=== PATIENT | male | born 1940 | race Caucasian/White ===

== ENCOUNTER 2020-08-21 13:10 | Outpatient (CLI) | payer MEDICARE, OTHER | END 2020-08-21 13:11 | disposition critical access hospital (66) | LOC: EMS 13:10 | DX: R73.9 Hyperglycemia, unspecified (principal); R20.0 Anesthesia of skin | CPT/HCPCS: A0425; A0429 ==

== ENCOUNTER 2020-08-21 14:10 | Inpatient (IN) | payer MEDICARE, OTHER ==
--- NOTE | 2020-08-21 14:29 | ED Physician Documentation ---
History of Present Illness - Stated complaint Stated Complaint: L LEG PX - Chief complaint Chief Complaint: General - Additonal information Additional information: 80-year-old male who has a history of diabetes hypertension and COPD comes to the emergency department via EMS for evaluation of hyperglycemia as well as 3 days right lower leg swelling and erythema. He reports to this provider that he ran out of insulin about 5 days ago and due to insurance and doctor availability was unable to get it refilled. He also began having swelling and redness of the right lower leg. He has reported subjective fevers but denies chest pain or sh ortness of air. No cough no vomiting abdominal pain dysuria urgency or frequency. He otherwise appears well. Her blood glucose for him right now is 318 mg/dl. Review of Systems Constitutional: reports: Fever Eyes: reports: Reviewed and negative Ears: reports: Reviewed and negative Nose: reports: Reviewed and negative Throat: reports: Reviewed and negative Cardiac: reports: Pedal edema, Calf pain (Right leg). denies: Chest pain / pressure, Palpitations Respiratory: reports: Dyspnea (baseline) GI: denies: Abdominal Pain, Nausea, Vomiting : denies: Dysuria, Frequency, Hesitancy Skin: reports: Other (Erythema and blistering right lower leg.) Neurologic: denies: Generalized weakness, Focal weakness, Numbness, Near syncope, Syncope, Confused, LOC PD PAST MEDICAL HISTORY - Past Medical History Cardiovascular: Hypertension, High cholesterol Endocrine/Autoimmune: Type 2 diabetes GI: GERD - Past Surgical History Past Surgical History: Yes General: Appendectomy - Present Medications Home Medications: Ambulatory Orders Medication Instructions Recorded Confirmed Cholecalciferol (Vitamin D3) 0 10/02/12 10/02/12 [Vitamin D] Flaxseed Oil [Flax Oil] 1,000 mg PO DAILY 10/02/12 10/02/12 Insulin Regular Human [NovoLIN R] 0 unit SUBQ ONCE 10/02/12 10/02/12 Multivitamin [Multivitamins] 1 each PO DAILY 10/02/12 10/02/12 [place]-3 Fatty Acids [Fish Oil] 0 mg PO DAILY 10/02/12 10/02/12 Simvastatin 20 mg PO DAILY 10/02/12 10/02/12 Tamsulosin [Flomax] 0.4 mg PO DAILY 10/02/12 10/02/12 allopurinoL [Allopurinol] 300 mg PO DAILY 10/02/12 10/02/12 lisinopriL [Lisinopril] 5 mg PO DAILY 10/02/12 10/02/12 Colesevelam HCl [Welchol] 625 mg PO DAILY PM 08/21/20 08/21/20 Finasteride [Proscar] 5 mg PO DAILY 08/21/20 08/21/20 Mecobal/Levomefolat Ca/B6 Phos 1 tab PO DAILY 08/21/20 08/21/20 [Foltanx Tablet] Methotrexate [Methotrexate Sodium] 2.5 mg PO DAILY PM 08/21/20 08/21/20 Thiamine [Vitamin B-1] 150 mg PO DAILY 08/21/20 08/21/20 metFORMIN [Glucophage] 500 mg PO DAILY PM 08/21/20 08/21/20 - Allergies Allergies/Adverse Reactions: Allergies Allergy/AdvReac Type Severity Reaction Status Date / Time No Known Drug Allergies Allergy Verified 08/21/20 14:21 - Social History Does the pt smoke?: No Smoking Status: Never smoker Does the pt drink ETOH?: No Does the pt have substance abuse?: No PD ED PE EXPANDED - General General: Alert, No acute distress, Other (Morbidly obese) - Neck Neck: Supple w/out meningeal sx. No: No tenderness - Cardiac Cardiac: Regular Rate, Radial strong equal, Pedal strong equal, Cap refill < 2 sec - Respiratory Respiratory: Clear to ausultation gurjit. No: Distress, Labored - Abdomen Abdomen: Normal Bowel sounds. No: Tender to palpation - Derm Derm: Warm and dry, Other (Extensive erythema and induration right lower foot and calf.) - Extremities Extremities: Right leg (Extensive swelling erythema and blistering right lower leg and calf extending to the knee.), Pedal edema R, Right calf TTP/cord, Pedal Pulses Present. No: Left calf TTP/cord, Decreased/absent pulse - Neuro Neuro: Alert and Oriented X 3, CNII-XII intact, Normal speech - GCS Eye Opening: Spontaneous Motor: Obeys Commands Verbal: Oriented Total: 15 Results - Vitals Vitals: Vital Signs - 24 hr 08/21/20 14:17 Temperature 36.5 C Heart Rate 93 Respiratory 20 Rate Blood Pressure 164/79 H O2 Saturation 93 Oxygen O2 Source Room air - Labs Labs: Laboratory Tests 08/21/20 08/21/20 08/21/20 14:52 14:52 14:52 WBC 20.5 H RBC 4.02 L Hgb 12.0 L Hct 35.6 L MCV 88.6 MCH 29.9 MCHC 33.7 RDW 13.6 Plt Count 197 MPV 9.1 Neut # (Auto) Not Reportable Lymph # (Auto) Not Reportable Butler # (Auto) Not Reportable Eos # (Auto) Not Reportable Baso # (Auto) Not Reportable Absolute Nucleated RBC Not Reportable Total Counted 100 Band Neuts % (Manual) 4 Abnorm Lymph % (Manual) 0 Nucleated RBC % Not Reportable Neutrophils # (Manual) 17.4 H Lymphocytes # (Manual) 1.0 L Monocytes # (Manual) 2.1 H Eosinophils # (Manual) 0.0 Basophils # (Manual) 0.0 Differential Comment MANUAL DIFFERENTIAL Manual Slide Review Indicated WBC Morphology 2+ TOXIC GRANULATION Platelet Estimate NORMAL (130-450,000) Platelet Morphology NORMAL APPEARANCE RBC Morph Micro Appear 1+ POLYCHROMASIA Sodium 130 L Potassium 4.0 Chloride 95 L Carbon Dioxide 22 Anion Gap 13.0 BUN 43 H Creatinine 1.6 H Estimated GFR (MDRD) 42 L Glucose 323 H Lactic Acid 1.7 Calcium 8.8 Total Bilirubin 0.5 AST 15 ALT 24 Alkaline Phosphatase 60 Total Protein 6.6 L Albumin 2.7 L Globulin 3.9 Albumin/Globulin Ratio 0.7 L Ethyl Alcohol Serum Ketones NEGATIVE 08/21/20 14:52 WBC RBC Hgb Hct MCV MCH MCHC RDW Plt Count MPV Neut # (Auto) Lymph # (Auto) Butler # (Auto) Eos # (Auto) Baso # (Auto) Absolute Nucleated RBC Total Counted Band Neuts % (Manual) Abnorm Lymph % (Manual) Nucleated RBC % Neutrophils # (Manual) Lymphocytes # (Manual) Monocytes # (Manual) Eosinophils # (Manual) Basophils # (Manual) Differential Comment Manual Slide Review WBC Morphology Platelet Estimate Platelet Morphology RBC Morph Micro Appear Sodium Potassium Chloride Carbon Dioxide Anion Gap BUN Creatinine Estimated GFR (MDRD) Glucose Lactic Acid Calcium Total Bilirubin AST ALT Alkaline Phosphatase Total Protein Albumin Globulin Albumin/Globulin Ratio Ethyl Alcohol < 5.0 Serum Ketones PD MEDICAL DECISION MAKING - ED course Complexity details: reviewed results, re-evaluated patient, d/w patient ED course: 80-year-old male presents the emergency department with elevated blood sugars as he ran out of insulin 2 days ago and has extensive cellulitis on the right lower leg. He is noted to have fevers at home but none here and an elevated white count of 20. Lactic acid is not elevated. However he does meet criteria for sepsis. vancomycin was ordered given extensive right leg cellulitis. blood cultures are pending. He will be brought into the hospital for further evaluation and treatment of his cellulitis and diabetes. Pt agreeable to plan - Sepsis Event Sepsis Onset Date: 08/21/20 Initial Hypotension: Not hypotensive Possible source of Sepsis: Skin/soft tissue Mental/Cognitive Status: Alert/Oriented X3 Reason for not giving 30ml/kg crystalloid fluids: Not in septic shock Capillary refill: Less than 2 seconds Peripheral Pulse Strength: 2+ Slightly Diminished Peripheral Pulse Location: Radial Bedside ultrasound performed: No Departure - Departure Disposition: 66 [facility] DC/Xfer Clinical Impression: Cellulitis Qualifiers: Site of cellulitis: extremity Site of cellulitis of extremity: lower extremity Laterality: right Qualified Code(s): L03.115 - Cellulitis of right lower limb Diabetes Qualifiers: Diabetes mellitus type: type 2 Diabetes mellitus intermediate insulin use: with intermediate use Diabetes mellitus complication status: with other specified complication Qualified Code(s): E11.69 - Type 2 diabetes mellitus with other specified complication Sepsis Qualifiers: Sepsis type: sepsis due to unspecified organism Sepsis acute organ dysfunction status: without acute organ dysfunction Qualified Code(s): A41.9 - Sepsis, unspecified organism Discharge Date/Time: 08/21/20 17:32
[2020-08-21 14:58] LABS: BASOPHILS % (AUTO) 0.3 %; HCT - HEMATOCRIT 35.6 % (42.0-52.0); LYMPHOCYTES % (AUTO) 7.7 %; MEAN CORPUSCULAR HEMOGLOBIN 29.9 pg (27.0-31.0); MEAN CORPUSCULAR HGB CONC 33.7 g/dL (32.0-36.0); MEAN CORPUSCULAR VOLUME 88.6 fL (80.0-94.0); MEAN PLATELET VOLUME 9.1 fL (7.4-11.4); MONOCYTES % (AUTO) 4.7 %; NEUTROPHILS % (AUTO) 86.7 %; PLT - PLATELET COUNT 197 10^3/uL (130-450); RED BLOOD COUNT 4.02 10^6/uL (4.70-6.10); RED CELL DISTRIBUTION WIDTH 13.6 % (12.0-15.0); SLIDE REVIEW? Indicated; WHITE BLOOD COUNT 20.5 x10^3/uL (4.8-10.8)
[2020-08-21 15:02] LABS: KETONES, SERUM (ACETEST) NEGATIVE (NEGATIVE)
[2020-08-21 15:12] LABS: ALBUMIN 2.7 g/dL (3.2-5.5); ALBUMIN/GLOBULIN RATIO 0.7 (1.0-2.2); ALKALINE PHOSPHATASE 60 IU/L (42-121); ALT ALANINE AMINOTRANSFERASE 24 IU/L (10-60); AST ASPARTATE AMINOTRANSFERASE 15 IU/L (10-42); BILIRUBIN,TOTAL 0.5 mg/dL (0.2-1.0); BUN - BLOOD UREA NITROGEN 43 mg/dL (6-20); CALCIUM 8.8 mg/dL (8.5-10.3); CARBON DIOXIDE - CO2 22 mmol/L (21-32); CHLORIDE 95 mmol/L (101-111); CREATININE 1.6 mg/dL (0.6-1.2); GFR - MDRD 42 (>89); GLUCOSE 323 mg/dL (70-100); SODIUM 130 mmol/L (135-145); TOTAL PROTEIN 6.6 g/dL (6.7-8.2)
[2020-08-21 15:17] LABS: ABNORMAL LYMPHS % (MANUAL) 0 %
[2020-08-21 15:20] LABS: BAND NEUTROPHILS % (MANUAL) 4 %; LYMPHOCYTES % (MANUAL) 5 %; MONOCYTES # (MANUAL) 2.1 10^3/uL (0.0-1.0); NEUTROPHILS # (MANUAL) 17.4 10^3/uL (1.5-6.6); PLATELET ESTIMATE, MANUAL NORMAL (130-450,000) (NORMAL); PLATELET MORPHOLOGY NORMAL APPEARANCE (NORMAL)
[2020-08-21 15:21] LABS: WBC MORPHOLOGY (MULTIPLE) 2+ TOXIC GRANULATION (NORMAL)
[2020-08-21 15:22] LABS: DIFFERENTIAL COMMENT MANUAL DIFFERENTIAL
[2020-08-21] MEDS ORDERED: SODIUM CHLORIDE FLUSH 0.9% 10 ML SYRINGE IVP PRN (15:55)
[2020-08-21] MEDS ORDERED: ONDANSETRON 4 MG/2 ML VIAL IVP PRN (15:55)
[2020-08-21] MEDS ORDERED: VANCOMYCIN INJ 1.25 GM in SODIUM CHLORIDE 0.9% 500 ML IV STA (15:55)
[2020-08-21] MEDS ORDERED: oxyCODONE 5 MG TABLET PO PRN (15:55)
[2020-08-21] MEDS ORDERED: VANCOMYCIN INJ 3 GM in SODIUM CHLORIDE 0.9% 500 ML IV STA (16:00)
[2020-08-21] MEDS ORDERED: SODIUM CHLORIDE 0.9% 1,000 ML IV SCH (16:00)
--- NOTE | 2020-08-21 16:05 | Ultrasound Report ---
PROCEDURE: Duplex Ext Veins Right INDICATIONS: swelling, erythema; r/o DVT TECHNIQUE: Real-time imaging, as well as color and pulse Doppler interrogation, were performed of the lower extr emity deep veins from the inguinal ligament to the popliteal fossa. COMPARISON: None. FINDINGS: The deep veins are normally compressible, and free of intraluminal thrombus. Color and pu lse Doppler demonstrate normal phasic intraluminal flow. There is normal augmentation response to di stal compression maneuver. IMPRESSION: No evidence of deep vein thrombosis involving the right lower extremity. Reviewed by: Gisella Dias MD, PhD on 08/21/2020 4:04 PM PDT Approved by: Gisella Dias MD, PhD on 08/21/2020 4:04 PM PDT Station ID: [id number]
[2020-08-21] MEDS ORDERED: hydrALAZINE INJ 20 MG/ML VIAL IVP PRN (16:21)
[2020-08-21] MEDS ORDERED: IPRATROPIUM/ALBUTEROL 3 ML NEB INH PRN (16:22)
[2020-08-21] MEDS ORDERED: ALBUTEROL NEB 2.5 MG/3 ML INH PRN (16:22)
--- NOTE | 2020-08-21 16:22 | HISTORY & PHYSICAL EXAMINATION ---
Chief Complaint - Chief Complaint Chief Complaint: cellulitis History of Present Illness - Admitted From Admitted From:: ER - History Obtained From Records Reviewed: [facility] History obtained from: pt - History of Present Illness HPI Comment/Other: This is 80-year-old male with a past medical history significant of diabetes, hypertension, HTN, HLD, COPD who present comes to the emergency department via EMS for evaluation of right lower leg swelling and erythema. pt report he found out he had swelling and redness with pain on the right leg which started 2 days ago. he report he had fever at home. pt also reports that he ran out of insulin about 5 days ago. He was unable to get it refilled his insulin due to his insurance issue and his doctor availability. he report his sugars have been running in 400s, 375 in home. pt also complain of bilateral hand tingle. He denies chest pain, cough or shortness of air. Routine laboratory testing show patient had glucose 323, sodium 130, creatinine 1.6, WBC 20, serum ketone is negative. In ER, patient is afebrile, patient had slightly elevated blood pressure otherwise patient is hemodynamic stable. Ultrasound of right lower extremity show no DVT. Given above medical condition, medical team was consulted for admission. Discussed the care goal with the patient, patient like to have full code History - Past Medical History Cardiovascular: reports: Hypertension, High cholesterol Endocrine/Autoimmune: reports: Type 2 diabetes GI: reports: GERD MRSA Hx?: No - Past Surgical History General: reports: Appendectomy - Family & Social History Family History: Mother: , Father: Family History Comment/Other: pt Report his father at age 72, from lung disease complication. Patient reported his mother in the nearly same age 72 as his father from diabetic complication, and breast cancer and skin cancer Social History Notes: Patient denying history of cigarette smoking, alcohol and drug abuse Meds/Allgy - Home Medications Home Medications: Ambulatory Orders Medication Instructions Recorded Confirmed Cholecalciferol (Vitamin D3) 0 10/02/12 10/02/12 [Vitamin D] Flaxseed Oil [Flax Oil] 1,000 mg PO DAILY 10/02/12 10/02/12 Insulin Regular Human [NovoLIN R] 0 unit SUBQ ONCE 10/02/12 10/02/12 Multivitamin [Multivitamins] 1 each PO DAILY 10/02/12 10/02/12 [place]-3 Fatty Acids [Fish Oil] 0 mg PO DAILY 10/02/12 10/02/12 Simvastatin 20 mg PO DAILY 10/02/12 10/02/12 Tamsulosin [Flomax] 0.4 mg PO DAILY 10/02/12 10/02/12 allopurinoL [Allopurinol] 300 mg PO DAILY 10/02/12 10/02/12 lisinopriL [Lisinopril] 5 mg PO DAILY 10/02/12 10/02/12 Colesevelam HCl [Welchol] 625 mg PO DAILY PM 08/21/20 08/21/20 Finasteride [Proscar] 5 mg PO DAILY 08/21/20 08/21/20 Mecobal/Levomefolat Ca/B6 Phos 1 tab PO DAILY 08/21/20 08/21/20 [Foltanx Tablet] Methotrexate [Methotrexate Sodium] 2.5 mg PO DAILY PM 08/21/20 08/21/20 Thiamine [Vitamin B-1] 150 mg PO DAILY 08/21/20 08/21/20 metFORMIN [Glucophage] 500 mg PO DAILY PM 08/21/20 08/21/20 - Allergies Allergies/Adverse Reactions: Allergies Allergy/AdvReac Type Severity Reaction Status Date / Time No Known Drug Allergies Allergy Verified 08/21/20 14:21 Review of Systems - Constitutional Constitutional: reports: Fever, Chills. denies: Fatigue, Malaise, Weakness, Poor appetite, Diaphoresis - Eyes Eyes: denies: Pain, Blurred vision, Field loss, Vision loss - Ears, Nose & Throat Ears, Nose & Throat: denies: Ear pain, Vertigo, Nosebleeds, Bleeding gums - Cardiovascular Cariovascular: denies: Irregular heart rate, Palpitations, Chest pain, Lightheadedness, Syncope, Exertional dyspnea, Decr. exercise tolerance - Respiratory Respiratory: denies: Cough, Sputum production, Wheezing, Hemoptysis, Orthopnea, SOB at rest, SOB with exertion - Gastrointestinal Gastrointestinal: denies: Abdominal pain, Constipation, Diarrhea, Rectal bleeding, Black stools, Nausea, Vomiting - Genitourinary Genitourinary: denies: Dysuria, Urgency, Incontinence - Musculoskeletal Musculoskeletal: denies: Muscle pain, Muscle aches, Limited range of motion Prior Level of Functionality: Patient is independent in the home Exam - Vital Signs Vital Signs: Vital Signs x48h Temp Pulse Resp BP Pulse Ox 08/21/20 14:17 36.5 C 93 20 164/79 H 93 - Physical Exam General Appearance: positive: No acute distress, Alert. negative: Lethargic Eyes Bilateral: positive: Normal inspection, PERRL, No lid inflammation ENT: positive: ENT inspection nml, No signs of dehydration. negative: Purulent nasal drainage Neck: positive: Nml inspection, No JVD. negative: Thyromegaly, Tracheal deviation Respiratory: positive: Chest non-tender, No respiratory distress. negative: Wheezes, Rales Cardiovascular: positive: Regular rate & rhythm, No murmur. negative: Tachycardia, Bradycardia, Systolic murmur, Diastolic murmur Peripheral Pulses: positive: 2+ Abdomen: positive: Non-tender, Nml bowel sounds, No distention. negative: Tenderness Back: positive: Nml inspection Skin: positive: Warm, Dry, Other (Right lower extremity with erythema, mild to moderate swelling, warmth. skin is intact. right lower extremity distal and toes have intact neurovascular status). negative: Cyanosis, Diaphoresis, Pallor Extremities: positive: Full ROM, Other (mild edema at right lower extremity) Neurologic/Psychiatric: positive: Oriented x3, Motor nml, Sensation nml, Mood/affect nml. negative: Weakness, Sensory loss, Facial droop, Slurred/abnml speech, Depressed mood/affect Sepsis Event Note (H) - Evaluation Possible source of Sepsis: positive: Skin/soft tissue Conclusion/Plan - Problem List (1) Cellulitis of right lower extremity Conclusion/Plan: Patient had uncontrolled diabetic, patient has right low extremity cellulitis with swelling, erythema, and mild pain. WBC is 20 without fever, lactic acid is in normal arrange. ultrasound show no DVT, we will start with antibiotics vancomycin and Rocephin, monitor with CRP as well. (2) Uncontrolled diabetes mellitus Conclusion/Plan: Patient reported he had no insulin for 5 days. he had no insulin at home because of his insurance issue and his doctor availability. Today his glucose is 323. We will start with slide scale, Lantus in the night, ACHS to check glucose and Hypoglycemia protocol (3) HTN (hypertension) Conclusion/Plan: Patient had a slightly elevated blood pressure, we will give Norvasc 5 mg daily, hydralazine as needed (4) BPH (benign prostatic hyperplasia) Conclusion/Plan: Patient has a history of BPH, we will resume home meds (5) Morbid obesity Conclusion/Plan: Patient has a BMI 60, discussed patient for weight loss - Lab Results Fish Bones: 08/21/20 14:52 08/21/20 14:52 Core Measures - Anticipated LOS I expect patient to be DC'd or transferred within 96 hours.: Yes - DVT/VTE - Prophylaxis VTE/DVT Device ordered at admit?: Yes VTE/DVT Prophylaxis med ordered at admit?: Yes
[2020-08-21 17:03] LABS: B. PARAPERTUSSIS- RESP PCR PAN NOT DETECTED; B. PERTUSSIS- RESP PCR PANEL NOT DETECTED; C. PNEUMONIAE- RESP PCR PANEL NOT DETECTED; CORONAVIRUS 229E-RESP PCR NOT DETECTED; CORONAVIRUS HKU1-RESP PCR NOT DETECTED; CORONAVIRUS NL63-RESP PCR NOT DETECTED; CORONAVIRUS OC43-RESP PCR NOT DETECTED; HUMAN METAPNEUMOVIRUS NOT DETECTED; INFLUENZA A- RESP PCR PANEL NOT DETECTED; INFLUENZA B - RESP PCR PANEL NOT DETECTED; M. PNEUMONIAE- RESP PCR PANEL NOT DETECTED; PARAINFLUENZA VIRUS 1 NOT DETECTED; PARAINFLUENZA VIRUS 2 NOT DETECTED; PARAINFLUENZA VIRUS 3 NOT DETECTED; PARAINFLUENZA VIRUS 4 NOT DETECTED; RHINOVIRUS/ENTEROVIRUS NOT DETECTED; RSV- RESP PCR PANEL NOT DETECTED; SARS-CoV-2 -RESP PCR PANEL NOT DETECTED
--- NOTE | 2020-08-21 17:05 | XRAY Report ---
PROCEDURE: Chest 1 View X-Ray INDICATIONS: SOB TECHNIQUE: One view of the chest was acquired. COMPARISON: FINDINGS: Surgical changes and devices: None. Lungs and pleura: No pleural effusions or pneumothorax. Lungs are mildly edematous. Mediastinum: Mediastinal contours appear normal. Heart size is globally enlarged. Bones and chest wall: No suspicious bony lesions. Overlying soft tissues appear unremarkable. IMPRESSION: Mild chronic CHF pattern, no focal pneumonia found. Reviewed by: Tone Mishra MD on 08/21/2020 5:04 PM PDT Approved by: Tone Mishra MD on 08/21/2020 5:04 PM PDT Station ID: [id number]
--- NOTE | 2020-08-21 17:44 | PHARMACY PROGRESS NOTE ---
- Therapy Status Vancomycin regimen day #: 1 Therapy status: Awaiting steady state Basis for treatment: Empirical Treatment indication: CELLULITIS Trough goal: 15-20 Concurrent antibiotics: CEFTRIAXONE - PEYTON Risk Risk level for Acute Kidney Injury: High Acute Kidney Injury risk factors: Wt >100kg or BMI >40, Goal trough >15, Chronic baseline hypertension, Diabetes, Sepsis - Monitoring and Recommendation Clinical response to treatment: Lab Results 08/21/20 14:52 BUN 43 H Creatinine 1.6 H Estimated GFR (MDRD) 42 L Monitoring plan: Daily serum creatinine, Draw trough early, Suggest ongoing fluid replacement Next trough due prior to maintenance dose #: 3 Next trough due (date/time): 08/24/20 1600 Areas for additional monitoring: IV to PO when appropriate, Therapy de- escalation based on culture results, Acute Kidney Injury Pharmacy recommendation: Continue current regime
[2020-08-21] MEDS ORDERED: INSULIN ASPART 300 UNIT/3 ML PEN SUBQ ONE (18:00)
[2020-08-21] MEDS: INSULIN ASPART 300 UNIT/3 ML PEN SUBQ SCH ×2 (18:07→21:05)
[2020-08-21] MEDS: SACCHAROMYCES BOULARDII 250 MG CAPSULE PO SCH (19:00)
[2020-08-21] MEDS: amLODIPine 5 MG TABLET PO SCH (19:00)
[2020-08-21] MEDS: GABAPENTIN 100 MG CAPSULE PO SCH (19:00)
[2020-08-21] MEDS: SODIUM CHLORIDE FLUSH 0.9% 10 ML SYRINGE IVP SCH (19:01)
[2020-08-21] MEDS: cefTRIAXone 2 GM in SODIUM CHLORIDE 0.9% MINIBAG 100 ML IV SCH (19:50)
[2020-08-21] MEDS: SODIUM CHLORIDE 0.9% 1,000 ML IV SCH (19:50)
[2020-08-21 20:38] LABS: ESTIMATED AVERAGE GLUCOSE 249 mg/dL (70-100); HEMOGLOBIN A1c% 10.3 % (4.27-6.07)
[2020-08-21] MEDS ORDERED: INSULIN GLARGINE 300 UNIT/3 ML PEN SUBQ SCH (21:00)
[2020-08-21] MEDS: COLESEVELAM HCL 625 MG PO SCH (21:07)
[2020-08-21 23:05] LABS: BILIRUBIN,URINE NEGATIVE (NEGATIVE); GLUCOSE, URINE (UA) >=1000 mg/dL (NEGATIVE); KETONES,URINE (UA) TRACE mg/dL (NEGATIVE); LEUKOCYTE ESTERASE, URINE NEGATIVE (NEGATIVE); NITRITE,URINE NEGATIVE (NEGATIVE); OCCULT BLOOD,URINE NEGATIVE (NEGATIVE); PH,URINE 5.5 PH (5.0-7.5); PROTEIN,URINE TRACE mg/dL (NEGATIVE); UROBILINOGEN,URINE 0.2 (NORMAL) E.U./dL (NORMAL)
[2020-08-21 23:08] LABS: CLARITY,URINE CLEAR (CLEAR)
[2020-08-21 23:12] LABS: BACTERIA,URINE Rare /HPF (None Seen); CASTS, URINE 0-2 Hyaline Casts /LPF; RBC,URINE None Seen /HPF (0-5); SQUAMOUS EPITHELIAL CELL,UR RARE Squamous (<= Few); WBC,URINE 0-3 /HPF (0-3)
[2020-08-22] MEDS: SODIUM CHLORIDE FLUSH 0.9% 10 ML SYRINGE IVP SCH ×3 (00:40→16:55)
[2020-08-22] MEDS: ACETAMINOPHEN 325 MG TABLET PO PRN ×2 (04:14→09:02)
[2020-08-22] MEDS: GABAPENTIN 100 MG CAPSULE PO SCH ×3 (05:47→21:22)
[2020-08-22 06:10] LABS: BASOPHILS % (AUTO) 0.2 %; EOSINOPHILS # (AUTO) 0.2 10^3/uL (0.0-0.7); EOSINOPHILS % (AUTO) 1.1 %; HCT - HEMATOCRIT 33.1 % (42.0-52.0); HGB - HEMOGLOBIN 10.9 g/dL (14.0-18.0); LYMPHOCYTES # (AUTO) 1.4 10^3/uL (1.5-3.5); MEAN CORPUSCULAR HEMOGLOBIN 29.6 pg (27.0-31.0); MEAN CORPUSCULAR HGB CONC 32.9 g/dL (32.0-36.0); MEAN CORPUSCULAR VOLUME 89.9 fL (80.0-94.0); MEAN PLATELET VOLUME 9.7 fL (7.4-11.4); MONOCYTES # (AUTO) 0.7 10^3/uL (0.0-1.0); MONOCYTES % (AUTO) 4.1 %; NEUTROPHILS # (AUTO) 14.5 10^3/uL (1.5-6.6); NEUTROPHILS % (AUTO) 85.4 %; PLT - PLATELET COUNT 189 10^3/uL (130-450); RED BLOOD COUNT 3.68 10^6/uL (4.70-6.10); RED CELL DISTRIBUTION WIDTH 13.6 % (12.0-15.0)
[2020-08-22 06:39] LABS: CALCIUM 8.7 mg/dL (8.5-10.3); CREATININE 1.1 mg/dL (0.6-1.2); CRP - C-REACTIVE PROTEIN 27.5 mg/dL (0-1.0); POTASSIUM 3.9 mmol/L (3.5-5.0)
--- NOTE | 2020-08-22 07:49 | PROVIDER PROGRESS NOTE ---
Assessment/Plan - Problem List (1) Cellulitis of right lower extremity Assessment/Plan: Blood cell count has improved from 20 down to 17. There has been no spread of redness beyond the originally demarcated areas. Blood cultures have been no growth to date. Patient is on vancomycin and Rocephin. Will continue. IV hydration with normal saline at 83 mils per hour. Anticipated discharge in 2 days. (2) Uncontrolled diabetes mellitus Assessment/Plan: Patient's hemoglobin A1c is 10.3. He is supposed to be on Lantus 20 units subcu daily. He also takes NovoLog and Metformin at home. However he has not taken his medication in about 6 days because of a mixup with filling them. We will continue Lantus 20 units subcu daily. Sliding scale insulin ordered. Accu-Cheks before every meal and at bedtime. We will hold Metformin while actively treating patient in the hospital. (3) HTN (hypertension) Assessment/Plan: Currently normotensive with a systolic blood pressure of 127. On amlodipine 5 mg p.o. daily. Hydralazine 10 mg IV 4 times daily as needed ordered. (4) Morbid obesity Assessment/Plan: BMI of 42. (5) BPH (benign prostatic hyperplasia) Assessment/Plan: On finasteride 5 mg p.o. daily. - Current Meds Current Meds: Current Medications Generic Name Dose Route Start Last Admin Trade Name Freq PRN Reason Stop Dose Admin Acetaminophen 650 mg 08/21/20 15:55 08/22/20 04:14 Acetaminophen 325 Mg Tablet PO 650 mg Q4HR PRN Administration Pain 1 to 4 Amlodipine Besylate 5 mg 08/21/20 18:00 08/21/20 19:00 Amlodipine 5 Mg Tablet PO 5 mg DAILY LIBRA Administration Gabapentin 100 mg 08/21/20 19:00 08/22/20 05:47 Gabapentin 100 Mg Capsule PO 100 mg TID LIBRA Administration Ceftriaxone Sodium 2 gm/ 100 mls @ 200 mls/hr 08/21/20 18:00 08/21/20 20:20 Sodium Chloride IV Infused DAILY LIBRA Infusion Sodium Chloride 1,000 mls @ 83.3 mls/hr 08/21/20 18:00 08/21/20 19:50 Normal Saline 0.9% IV 08/22/20 18:00 83.3 mls/hr .Q12H1M LIBRA Administration Insulin Aspart 2 - 10 unit 08/21/20 17:00 08/21/20 21:05 Insulin Aspart 300 Unit/3 Ml Pen SUBQ 10 unit 0800,1200,1700,2100 LIBRA Administration Protocol Non-Formulary Medication 625 mg 08/21/20 21:00 08/21/20 21:07 Colesevelam Hcl [Welchol] PO Not Given QPM LIBRA Saccharomyces Boulardii 250 mg 08/21/20 19:00 08/21/20 19:00 Saccharomyces Boulardii 250 Mg Capsule PO 250 mg BIDWM LIBRA Administration Sodium Chloride 10 ml 08/21/20 17:00 08/22/20 00:40 Sodium Chloride Flush 0.9% 10 Ml Syringe IVP 10 ml 0100,0900,1700 LIBRA Administration - Lab Result Fish Bone Diagrams: 08/22/20 05:50 08/22/20 05:50 - Additional Planning My Orders: My Active Orders 08/22/20 08:00 Insulin Glargine [Lantus Solostar] 5 unit SUBQ ONCE 08/22/20 21:00 Insulin Glargine [Lantus Solostar] 15 unit SUBQ QPM Subjective - Subjective Patient Reports: Other (Patient resting comfortably in bed. He denies any pain or complaints. He is pursed lip breathing. The area of erythema on his right lower extremities appreciable. It is within the marked/demarcated borders. There is some weeping of yellowish, clear fluid.) Objective Vital Signs: Vital Signs - 24 hr 08/21/20 08/21/20 08/21/20 14:17 16:21 17:53 Temperature 36.5 C 36.7 C 36.9 C Heart Rate 93 94 Heart Rate [ 95 Brachial] Respiratory 20 16 20 Rate Blood Pressure 164/79 H 175/105 H Blood Pressure 130/67 [Right Brachial artery] O2 Saturation 93 97 96 08/21/20 08/21/20 08/22/20 21:00 23:52 00:30 Temperature 36.7 C 36.8 C Heart Rate 91 Heart Rate [ 97 91 Brachial] Respiratory 20 20 Rate Blood Pressure Blood Pressure 120/62 114/52 L [Right Brachial artery] O2 Saturation 96 95 08/22/20 08/22/20 03:00 04:07 Temperature 36.8 C Heart Rate 90 Heart Rate [ 98 Brachial] Respiratory 18 Rate Blood Pressure Blood Pressure 145/77 H [Right Brachial artery] O2 Saturation 95 Oxygen O2 Source CPAP I&O (Last 24 Hrs): Intake and Output Totals x24h 08/20/20 08/21/20 08/22/20 23:59 23:59 23:59 Intake Total 800 Output Total 2000 300 Balance -1200 -300 General: Alert, Oriented x3, Cooperative, No acute distress HEENT: PERRLA, EOMI Neck: Supple, No JVD Neuro: Alert, Non Focal, Oriented Times 3 Cardiovascular: Regular rate, No murmurs Respiratory: Chest non-tender, No respiratory distress, Breath sounds nml, Other (pursed-lip breathing) Abdomen: Normal bowel sounds, Soft, No tenderness, No masses Extremities: No clubbing Comments/Notes: Area of erythema on right lower extremity appreciable. It is within the original marked/demarcated borders of the infection. Some clear yellowish drainage noted. - Results Results: Laboratory Results WBC 17.0 x10^3/uL (4.8-10.8) H 08/22/20 05:50 RBC 3.68 10^6/uL (4.70-6.10) L 08/22/20 05:50 Hgb 10.9 g/dL (14.0-18.0) L 08/22/20 05:50 Hct 33.1 % (42.0-52.0) L 08/22/20 05:50 MCV 89.9 fL (80.0-94.0) 08/22/20 05:50 MCH 29.6 pg (27.0-31.0) 08/22/20 05:50 MCHC 32.9 g/dL (32.0-36.0) 08/22/20 05:50 RDW 13.6 % (12.0-15.0) 08/22/20 05:50 Plt Count 189 10^3/uL (130-450) 08/22/20 05:50 MPV 9.7 fL (7.4-11.4) 08/22/20 05:50 Neut # (Auto) 14.5 10^3/uL (1.5-6.6) H 08/22/20 05:50 Lymph # (Auto) 1.4 10^3/uL (1.5-3.5) L 08/22/20 05:50 [place] # (Auto) 0.7 10^3/uL (0.0-1.0) 08/22/20 05:50 Eos # (Auto) 0.2 10^3/uL (0.0-0.7) 08/22/20 05:50 Baso # (Auto) 0.0 10^3/uL (0.0-0.1) 08/22/20 05:50 Absolute Nucleated RBC 0.00 x10^3/uL 08/22/20 05:50 Total Counted 100 08/21/20 14:52 Band Neuts % (Manual) 4 % (0-10) 08/21/20 14:52 Abnorm Lymph % (Manual) 0 % 08/21/20 14:52 Nucleated RBC % 0.0 /100WBC 08/22/20 05:50 Neutrophils # (Manual) 17.4 10^3/uL (1.5-6.6) H 08/21/20 14:52 Lymphocytes # (Manual) 1.0 10^3/uL (1.5-3.5) L 08/21/20 14:52 Monocytes # (Manual) 2.1 10^3/uL (0.0-1.0) H 08/21/20 14:52 Eosinophils # (Manual) 0.0 10^3/uL (0-0.7) 08/21/20 14:52 Basophils # (Manual) 0.0 10^3/uL (0-0.1) 08/21/20 14:52 Differential Comment MANUAL DIFFERENTIAL 08/21/20 14:52 Manual Slide Review Indicated 08/21/20 14:52 WBC Morphology 2+ TOXIC GRANULATION (NORMAL) 08/21/20 14:52 Platelet Estimate NORMAL (130-450,000) (NORMAL) 08/21/20 14:52 Platelet Morphology NORMAL APPEARANCE (NORMAL) 08/21/20 14:52 RBC Morph Micro Appear 1+ ANISOCYTOSIS (NORMAL) 1+ POLYCHROMASIA (NORMAL) 08/21/20 14:52 RBC Morph Micro Appear 1+ ANISOCYTOSIS (NORMAL) 1+ POLYCHROMASIA (NORMAL) 08/21/20 14:52 Sodium 132 mmol/L (135-145) L 08/22/20 05:50 Potassium 3.9 mmol/L (3.5-5.0) 08/22/20 05:50 Chloride 99 mmol/L (101-111) L 08/22/20 05:50 Carbon Dioxide 23 mmol/L (21-32) 08/22/20 05:50 Anion Gap 10.0 (6-13) 08/22/20 05:50 BUN 34 mg/dL (6-20) H 08/22/20 05:50 Creatinine 1.1 mg/dL (0.6-1.2) 08/22/20 05:50 Estimated GFR (MDRD) 65 (>89) L 08/22/20 05:50 Glucose 277 mg/dL (70-100) H 08/22/20 05:50 Estimat Average Glucose 249 mg/dL (70-100) H 08/21/20 14:52 Hemoglobin A1c % 10.3 % (4.27-6.07) H 08/21/20 14:52 Lactic Acid 1.7 mmol/L (0.5-2.2) 08/21/20 14:52 Calcium 8.7 mg/dL (8.5-10.3) 08/22/20 05:50 Total Bilirubin 0.5 mg/dL (0.2-1.0) 08/21/20 14:52 AST 15 IU/L (10-42) 08/21/20 14:52 ALT 24 IU/L (10-60) 08/21/20 14:52 Alkaline Phosphatase 60 IU/L (42-121) 08/21/20 14:52 C-Reactive Protein 27.5 mg/dL (0-1.0) H 08/22/20 05:50 Total Protein 6.6 g/dL (6.7-8.2) L 08/21/20 14:52 Albumin 2.7 g/dL (3.2-5.5) L 08/21/20 14:52 Globulin 3.9 g/dL (2.1-4.2) 08/21/20 14:52 Albumin/Globulin Ratio 0.7 (1.0-2.2) L 08/21/20 14:52 Urine Color YELLOW 08/21/20 22:30 Urine Clarity CLEAR (CLEAR) 08/21/20 22:30 Urine pH 5.5 PH (5.0-7.5) 08/21/20 22:30 Ur Specific [place] 1.025 (1.002-1.030) 08/21/20 22:30 Urine Protein TRACE mg/dL (NEGATIVE) 08/21/20 22:30 Urine Glucose (UA) >=1000 mg/dL (NEGATIVE) H 08/21/20 22:30 Urine Ketones TRACE mg/dL (NEGATIVE) 08/21/20 22:30 Urine Occult Blood NEGATIVE (NEGATIVE) 08/21/20 22:30 Urine Nitrite NEGATIVE (NEGATIVE) 08/21/20 22:30 Urine Bilirubin NEGATIVE (NEGATIVE) 08/21/20 22:30 Urine Urobilinogen 0.2 (NORMAL) E.U./dL (NORMAL) 08/21/20 22:30 Ur Leukocyte Esterase NEGATIVE (NEGATIVE) 08/21/20 22:30 Urine RBC None Seen /HPF (0-5) 08/21/20 22:30 Urine WBC 0-3 /HPF (0-3) 08/21/20 22:30 Ur Squamous Epith Cells RARE Squamous (<= Few) 08/21/20 22:30 Urine Bacteria Rare /HPF (None Seen) 08/21/20 22:30 Urine Casts 0-2 Hyaline Casts /LPF 08/21/20 22:30 Urine Culture Comments NOT INDICATED 08/21/20 22:30 Nasal Adenovirus (PCR) NOT DETECTED 08/21/20 16:04 Nasal B. parapertussis DNA (PCR) NOT DETECTED 08/21/20 16:04 Nasal Coronavir 229E PCR NOT DETECTED 08/21/20 16:04 Nasal Coronavir HKU1 PCR NOT DETECTED 08/21/20 16:04 Nasal Coronavir NL63 PCR NOT DETECTED 08/21/20 16:04 Nasal Coronavir OC43 PCR NOT DETECTED 08/21/20 16:04 Nasal Enterovir/Rhinovir PCR NOT DETECTED 08/21/20 16:04 Nasal Influenza B PCR NOT DETECTED 08/21/20 16:04 Nasal Influenza A PCR NOT DETECTED 08/21/20 16:04 Nasal Parainfluen 1 PCR NOT DETECTED 08/21/20 16:04 Nasal Parainfluen 2 PCR NOT DETECTED 08/21/20 16:04 Nasal Parainfluen 3 PCR NOT DETECTED 08/21/20 16:04 Nasal Parainfluen 4 PCR NOT DETECTED 08/21/20 16:04 Nasal RSV (PCR) NOT DETECTED 08/21/20 16:04 Nasal B.pertussis DNA PCR NOT DETECTED 08/21/20 16:04 Nasal C.pneumoniae (PCR) NOT DETECTED 08/21/20 16:04 Christos Human Metapneumo PCR NOT DETECTED 08/21/20 16:04 Nasal M.pneumoniae (PCR) NOT DETECTED 08/21/20 16:04 Nasal SARS-CoV-2 (PCR) NOT DETECTED 08/21/20 16:04 Ethyl Alcohol < 5.0 mg/dL 08/21/20 14:52 Serum Ketones NEGATIVE (NEGATIVE) 08/21/20 14:52 Sepsis Event Note (H) - Evaluation Possible source of Sepsis: positive: Skin/soft tissue ABX Reporting Has patient been on IV antibiotics over the past 48 hours?: Yes
[2020-08-22] MEDS: SODIUM CHLORIDE 0.9% 1,000 ML IV SCH (07:53)
[2020-08-22] MEDS ORDERED: INSULIN GLARGINE 300 UNIT/3 ML PEN SUBQ ONE (08:00)
[2020-08-22] MEDS: INSULIN ASPART 300 UNIT/3 ML PEN SUBQ SCH ×4 (08:14→21:20)
[2020-08-22] MEDS: THIAMINE 100 MG TABLET PO SCH (09:02)
[2020-08-22] MEDS: SACCHAROMYCES BOULARDII 250 MG CAPSULE PO SCH ×2 (09:02→16:54)
[2020-08-22] MEDS: amLODIPine 5 MG TABLET PO SCH (09:03)
[2020-08-22] MEDS: ENOXAPARIN 40 MG/0.4 ML SYRINGE SUBQ SCH (09:03)
[2020-08-22] MEDS: FINASTERIDE 5 MG TABLET PO SCH (09:03)
[2020-08-22] MEDS: cefTRIAXone 2 GM in SODIUM CHLORIDE 0.9% MINIBAG 100 ML IV SCH (09:04)
--- NOTE | 2020-08-22 11:53 | PHARMACY PROGRESS NOTE ---
- Best Possible Medication History Admit Date and Time: 08/21/20 1555 Processed by: Pharmacy Medication History completed: Yes Patient Interview: Completed Secondary Source(s): Pharmacy records As the person ultimately responsible for medication therapy, providers are able to order a medication from an existing home medication list in [facility] via the "Reconcile Routine" prior to Confirmation of that medication by patient support assistant. Such practice is discouraged except when the physician, in their clinical judgment, deems that a medical need exists for a medication without regard to previous use.
[2020-08-22] MEDS: VANCOMYCIN INJ 2 GM in SODIUM CHLORIDE 0.9% 500 ML IV SCH (17:06)
[2020-08-22] MEDS ORDERED: INSULIN GLARGINE 300 UNIT/3 ML PEN SUBQ SCH (21:00)
[2020-08-22] MEDS: INSULIN GLARGINE 300 UNIT/3 ML PEN SUBQ SCH (21:21)
[2020-08-22] MEDS: COLESEVELAM HCL 625 MG PO SCH (21:22)
[2020-08-23] MEDS: ACETAMINOPHEN 325 MG TABLET PO PRN ×3 (01:30→16:41)
[2020-08-23] MEDS: SODIUM CHLORIDE FLUSH 0.9% 10 ML SYRINGE IVP SCH ×3 (01:33→16:58)
[2020-08-23 05:24] LABS: BASOPHILS # (AUTO) 0.1 10^3/uL (0.0-0.1); BASOPHILS % (AUTO) 0.4 %; EOSINOPHILS # (AUTO) 0.4 10^3/uL (0.0-0.7); EOSINOPHILS % (AUTO) 3.4 %; HCT - HEMATOCRIT 33.9 % (42.0-52.0); HGB - HEMOGLOBIN 10.9 g/dL (14.0-18.0); LYMPHOCYTES # (AUTO) 1.5 10^3/uL (1.5-3.5); LYMPHOCYTES % (AUTO) 12.5 %; MEAN CORPUSCULAR HGB CONC 32.2 g/dL (32.0-36.0); MEAN CORPUSCULAR VOLUME 90.2 fL (80.0-94.0); MEAN PLATELET VOLUME 9.5 fL (7.4-11.4); MONOCYTES # (AUTO) 0.6 10^3/uL (0.0-1.0); MONOCYTES % (AUTO) 4.7 %; NEUTROPHILS # (AUTO) 9.2 10^3/uL (1.5-6.6); NEUTROPHILS % (AUTO) 76.7 %; PLT - PLATELET COUNT 223 10^3/uL (130-450); RED BLOOD COUNT 3.76 10^6/uL (4.70-6.10); RED CELL DISTRIBUTION WIDTH 13.5 % (12.0-15.0); WHITE BLOOD COUNT 11.9 x10^3/uL (4.8-10.8)
[2020-08-23] MEDS: GABAPENTIN 100 MG CAPSULE PO SCH ×3 (05:36→21:04)
[2020-08-23 05:40] LABS: CALCIUM 8.3 mg/dL (8.5-10.3); CRP - C-REACTIVE PROTEIN 19.7 mg/dL (0-1.0); POTASSIUM 3.7 mmol/L (3.5-5.0)
--- NOTE | 2020-08-23 07:24 | PROVIDER PROGRESS NOTE ---
Assessment/Plan - Problem List (1) Cellulitis of right lower extremity Assessment/Plan: White blood cell count has improved from 17 down to 11.9 There is significant improvement in the erythema of the right lower extremity. Blood cultures have been no growth to date. Patient is on vancomycin and Rocephin. Will continue. Will plan to switch the patient to doxycycline 100mg po bid X 5 days upon discharge IV hydration with normal saline at 83 mils per hour. Anticipated discharge tomorrow 08/24/20. (2) Uncontrolled diabetes mellitus Assessment/Plan: Patient's hemoglobin A1c is 10.3. Lantus 20 units subcu daily. Sliding scale insulin ordered. Accu-Cheks before every meal and at bedtime. We will hold Metformin while actively treating patient in the hospital. (3) HTN (hypertension) Assessment/Plan: On amlodipine 5 mg p.o. daily. Hydralazine 10 mg IV 4 times daily as needed ordered. (4) Morbid obesity Assessment/Plan: BMI of 42. (5) BPH (benign prostatic hyperplasia) Assessment/Plan: On finasteride 5 mg p.o. daily. - Current Meds Current Meds: Current Medications Generic Name Dose Route Start Last Admin Trade Name Freq PRN Reason Stop Dose Admin Acetaminophen 650 mg 08/21/20 15:55 08/23/20 01:30 Acetaminophen 325 Mg Tablet PO 650 mg Q4HR PRN Administration Pain 1 to 4 Albuterol/Ipratropium 3 ml 08/21/20 16:22 08/22/20 08:22 Ipratropium/Albuterol 3 Ml Neb INH 3 ml RTQID PRN Administration Shortness of Air/Wheezing Amlodipine Besylate 5 mg 08/21/20 18:00 08/22/20 09:03 Amlodipine 5 Mg Tablet PO 5 mg DAILY LIBRA Administration Enoxaparin Sodium 40 mg 08/22/20 09:00 08/22/20 09:03 Enoxaparin 40 Mg/0.4 Ml Syringe SUBQ 40 mg DAILY LIBRA Administration Finasteride 5 mg 08/22/20 09:00 08/22/20 09:03 Finasteride 5 Mg Tablet PO 5 mg DAILY LIBRA Administration Gabapentin 100 mg 08/21/20 19:00 08/23/20 05:36 Gabapentin 100 Mg Capsule PO 100 mg TID LIBRA Administration Ceftriaxone Sodium 2 gm/ 100 mls @ 200 mls/hr 08/21/20 18:00 08/22/20 09:49 Sodium Chloride IV Infused DAILY LIBRA Infusion Vancomycin HCl 2 gm/ Sodium 500 mls @ 250 mls/hr 08/22/20 17:00 08/22/20 19:06 Chloride IV Infused Q24H LIBRA Infusion Insulin Aspart 3 - 11 unit 08/22/20 08:00 08/22/20 21:20 Insulin Aspart 300 Unit/3 Ml Pen SUBQ 9 unit 0800,1200,1700,2100 LIBRA Administration Protocol Insulin Glargine 20 unit 08/22/20 21:00 08/22/20 21:21 Insulin Glargine 300 Unit/3 Ml Pen SUBQ 20 unit QPM LIBRA Administration Non-Formulary Medication 625 mg 08/21/20 21:00 08/22/20 21:22 Colesevelam Hcl [Welchol] PO Not Given QPM LIBRA Saccharomyces Boulardii 250 mg 08/21/20 19:00 08/22/20 16:54 Saccharomyces Boulardii 250 Mg Capsule PO 250 mg BIDWM LIBRA Administration Sodium Chloride 10 ml 08/21/20 15:55 08/22/20 13:42 Sodium Chloride Flush 0.9% 10 Ml Syringe IVP 10 ml PRN PRN Administration NEEDED PER PROVIDER ORDERS Sodium Chloride 10 ml 08/21/20 17:00 08/23/20 01:33 Sodium Chloride Flush 0.9% 10 Ml Syringe IVP 10 ml 0100,0900,1700 LIBRA Administration Thiamine HCl 200 mg 08/22/20 09:00 08/22/20 09:02 Thiamine 100 Mg Tablet PO 200 mg DAILY LIBRA Administration - Lab Result Fish Bone Diagrams: 08/23/20 04:45 08/23/20 04:45 - Additional Planning My Orders: My Active Orders 08/22/20 19:11 Straight Catheter Insertion [RC] PRN 08/22/20 21:00 Insulin Glargine [Lantus Solostar] 20 unit SUBQ QPM Subjective - Subjective Patient Reports: Other (Patient seated in bedside chair at time of visit. Did not sleep well last night. Pursed lip breathing continues. There was significant improvement in the patient's right lower extremity erythema.) Objective Vital Signs: Vital Signs - 24 hr 08/22/20 08/22/20 08/22/20 07:35 08:00 10:45 Temperature 36.9 C Heart Rate 102 H Heart Rate [ 83 Brachial] Respiratory 18 18 Rate Blood Pressure 127/67 [Right Brachial artery] Blood Pressure 127/67 [Supine] O2 Saturation 90 L O2 Saturation [ 100 Without Activity] 08/22/20 08/22/20 08/22/20 11:20 11:25 15:33 Temperature 36.9 C 36.5 C 36.4 C L Heart Rate 100 Heart Rate [ 86 88 Brachial] Respiratory 16 18 16 Rate Blood Pressure 127/71 127/54 L [Right Brachial artery] Blood Pressure [Supine] O2 Saturation 93 94 97 O2 Saturation [ Without Activity] 08/22/20 08/23/20 08/23/20 20:03 00:00 05:20 Temperature 36.6 C 36.6 C 36.8 C Heart Rate Heart Rate [ 81 72 76 Brachial] Respiratory 16 20 20 Rate Blood Pressure 145/69 H 119/63 123/62 [Right Brachial artery] Blood Pressure [Supine] O2 Saturation 100 97 92 O2 Saturation [ Without Activity] Oxygen O2 Source [Without Activity] Room air O2 Source BIPAP I&O (Last 24 Hrs): Intake and Output Totals x24h 08/21/20 08/22/20 08/23/20 23:59 23:59 23:59 Intake Total 800 3927.748 Output Total 2000 1000 Balance -1200 2927.748 General: Alert, Oriented x3, Cooperative, No acute distress HEENT: PERRLA, EOMI Neck: Supple, No JVD Neuro: Alert, Non Focal, Oriented Times 3 Cardiovascular: Regular rate, No murmurs Respiratory: Chest non-tender, No respiratory distress, Breath sounds nml, Other (pursed-lip breathing) Abdomen: Normal bowel sounds, Soft, No tenderness Extremities: No clubbing Comments/Notes: Significant improvement in erythema on right lower extremity appreciable. It is within the original marked/demarcated borders of the infection. Some clear yellowish drainage noted. - Results Results: Laboratory Results WBC 11.9 x10^3/uL (4.8-10.8) H 08/23/20 04:45 RBC 3.76 10^6/uL (4.70-6.10) L 08/23/20 04:45 Hgb 10.9 g/dL (14.0-18.0) L 08/23/20 04:45 Hct 33.9 % (42.0-52.0) L 08/23/20 04:45 MCV 90.2 fL (80.0-94.0) 08/23/20 04:45 MCH 29.0 pg (27.0-31.0) 08/23/20 04:45 MCHC 32.2 g/dL (32.0-36.0) 08/23/20 04:45 RDW 13.5 % (12.0-15.0) 08/23/20 04:45 Plt Count 223 10^3/uL (130-450) 08/23/20 04:45 MPV 9.5 fL (7.4-11.4) 08/23/20 04:45 Neut # (Auto) 9.2 10^3/uL (1.5-6.6) H 08/23/20 04:45 Lymph # (Auto) 1.5 10^3/uL (1.5-3.5) 08/23/20 04:45 [place] # (Auto) 0.6 10^3/uL (0.0-1.0) 08/23/20 04:45 Eos # (Auto) 0.4 10^3/uL (0.0-0.7) 08/23/20 04:45 Baso # (Auto) 0.1 10^3/uL (0.0-0.1) 08/23/20 04:45 Absolute Nucleated RBC 0.00 x10^3/uL 08/23/20 04:45 Total Counted 100 08/21/20 14:52 Band Neuts % (Manual) 4 % (0-10) 08/21/20 14:52 Abnorm Lymph % (Manual) 0 % 08/21/20 14:52 Nucleated RBC % 0.0 /100WBC 08/23/20 04:45 Neutrophils # (Manual) 17.4 10^3/uL (1.5-6.6) H 08/21/20 14:52 Lymphocytes # (Manual) 1.0 10^3/uL (1.5-3.5) L 08/21/20 14:52 Monocytes # (Manual) 2.1 10^3/uL (0.0-1.0) H 08/21/20 14:52 Eosinophils # (Manual) 0.0 10^3/uL (0-0.7) 08/21/20 14:52 Basophils # (Manual) 0.0 10^3/uL (0-0.1) 08/21/20 14:52 Differential Comment MANUAL DIFFERENTIAL 08/21/20 14:52 Manual Slide Review Indicated 08/21/20 14:52 WBC Morphology 2+ TOXIC GRANULATION (NORMAL) 08/21/20 14:52 Platelet Estimate NORMAL (130-450,000) (NORMAL) 08/21/20 14:52 Platelet Morphology NORMAL APPEARANCE (NORMAL) 08/21/20 14:52 RBC Morph Micro Appear 1+ ANISOCYTOSIS (NORMAL) 1+ POLYCHROMASIA (NORMAL) 08/21/20 14:52 RBC Morph Micro Appear 1+ ANISOCYTOSIS (NORMAL) 1+ POLYCHROMASIA (NORMAL) 08/21/20 14:52 Sodium 132 mmol/L (135-145) L 08/23/20 04:45 Potassium 3.7 mmol/L (3.5-5.0) 08/23/20 04:45 Chloride 99 mmol/L (101-111) L 08/23/20 04:45 Carbon Dioxide 24 mmol/L (21-32) 08/23/20 04:45 Anion Gap 9.0 (6-13) 08/23/20 04:45 BUN 25 mg/dL (6-20) H 08/23/20 04:45 Creatinine 1.0 mg/dL (0.6-1.2) 08/23/20 04:45 Estimated GFR (MDRD) 72 (>89) L 08/23/20 04:45 Glucose 267 mg/dL (70-100) H 08/23/20 04:45 Estimat Average Glucose 249 mg/dL (70-100) H 08/21/20 14:52 Hemoglobin A1c % 10.3 % (4.27-6.07) H 08/21/20 14:52 Lactic Acid 1.7 mmol/L (0.5-2.2) 08/21/20 14:52 Calcium 8.3 mg/dL (8.5-10.3) L 08/23/20 04:45 Total Bilirubin 0.5 mg/dL (0.2-1.0) 08/21/20 14:52 AST 15 IU/L (10-42) 08/21/20 14:52 ALT 24 IU/L (10-60) 08/21/20 14:52 Alkaline Phosphatase 60 IU/L (42-121) 08/21/20 14:52 C-Reactive Protein 19.7 mg/dL (0-1.0) H 08/23/20 04:45 Total Protein 6.6 g/dL (6.7-8.2) L 08/21/20 14:52 Albumin 2.7 g/dL (3.2-5.5) L 08/21/20 14:52 Globulin 3.9 g/dL (2.1-4.2) 08/21/20 14:52 Albumin/Globulin Ratio 0.7 (1.0-2.2) L 08/21/20 14:52 Urine Color YELLOW 08/21/20 22:30 Urine Clarity CLEAR (CLEAR) 08/21/20 22:30 Urine pH 5.5 PH (5.0-7.5) 08/21/20 22:30 Ur Specific [place] 1.025 (1.002-1.030) 08/21/20 22:30 Urine Protein TRACE mg/dL (NEGATIVE) 08/21/20 22:30 Urine Glucose (UA) >=1000 mg/dL (NEGATIVE) H 08/21/20 22:30 Urine Ketones TRACE mg/dL (NEGATIVE) 08/21/20 22:30 Urine Occult Blood NEGATIVE (NEGATIVE) 08/21/20 22:30 Urine Nitrite NEGATIVE (NEGATIVE) 08/21/20 22:30 Urine Bilirubin NEGATIVE (NEGATIVE) 08/21/20 22:30 Urine Urobilinogen 0.2 (NORMAL) E.U./dL (NORMAL) 08/21/20 22:30 Ur Leukocyte Esterase NEGATIVE (NEGATIVE) 08/21/20 22:30 Urine RBC None Seen /HPF (0-5) 08/21/20 22:30 Urine WBC 0-3 /HPF (0-3) 08/21/20 22:30 Ur Squamous Epith Cells RARE Squamous (<= Few) 08/21/20 22:30 Urine Bacteria Rare /HPF (None Seen) 08/21/20 22:30 Urine Casts 0-2 Hyaline Casts /LPF 08/21/20 22:30 Urine Culture Comments NOT INDICATED 08/21/20 22:30 Nasal Adenovirus (PCR) NOT DETECTED 08/21/20 16:04 Nasal B. parapertussis DNA (PCR) NOT DETECTED 08/21/20 16:04 Nasal Coronavir 229E PCR NOT DETECTED 08/21/20 16:04 Nasal Coronavir HKU1 PCR NOT DETECTED 08/21/20 16:04 Nasal Coronavir NL63 PCR NOT DETECTED 08/21/20 16:04 Nasal Coronavir OC43 PCR NOT DETECTED 08/21/20 16:04 Nasal Enterovir/Rhinovir PCR NOT DETECTED 08/21/20 16:04 Nasal Influenza B PCR NOT DETECTED 08/21/20 16:04 Nasal Influenza A PCR NOT DETECTED 08/21/20 16:04 Nasal Parainfluen 1 PCR NOT DETECTED 08/21/20 16:04 Nasal Parainfluen 2 PCR NOT DETECTED 08/21/20 16:04 Nasal Parainfluen 3 PCR NOT DETECTED 08/21/20 16:04 Nasal Parainfluen 4 PCR NOT DETECTED 08/21/20 16:04 Nasal RSV (PCR) NOT DETECTED 08/21/20 16:04 Nasal B.pertussis DNA PCR NOT DETECTED 08/21/20 16:04 Nasal C.pneumoniae (PCR) NOT DETECTED 08/21/20 16:04 Christos Human Metapneumo PCR NOT DETECTED 08/21/20 16:04 Nasal M.pneumoniae (PCR) NOT DETECTED 08/21/20 16:04 Nasal SARS-CoV-2 (PCR) NOT DETECTED 08/21/20 16:04 Ethyl Alcohol < 5.0 mg/dL 08/21/20 14:52 Serum Ketones NEGATIVE (NEGATIVE) 08/21/20 14:52 Sepsis Event Note (H) - Evaluation Possible source of Sepsis: positive: Skin/soft tissue ABX Reporting Has patient been on IV antibiotics over the past 48 hours?: Yes
[2020-08-23] MEDS: INSULIN ASPART 300 UNIT/3 ML PEN SUBQ SCH ×4 (07:55→21:03)
[2020-08-23] MEDS: FINASTERIDE 5 MG TABLET PO SCH (07:57)
[2020-08-23] MEDS: THIAMINE 100 MG TABLET PO SCH (07:57)
[2020-08-23] MEDS: SACCHAROMYCES BOULARDII 250 MG CAPSULE PO SCH ×2 (07:57→16:42)
[2020-08-23] MEDS: amLODIPine 5 MG TABLET PO SCH (07:57)
[2020-08-23] MEDS: ENOXAPARIN 40 MG/0.4 ML SYRINGE SUBQ SCH (07:58)
[2020-08-23] MEDS: cefTRIAXone 2 GM in SODIUM CHLORIDE 0.9% MINIBAG 100 ML IV SCH (07:59)
[2020-08-23] MEDS: polyethylene glycoL 3350 17 GM PACKET PO SCH (16:58)
[2020-08-23] MEDS: VANCOMYCIN INJ 2 GM in SODIUM CHLORIDE 0.9% 500 ML IV SCH (16:58)
[2020-08-23] MEDS: COLESEVELAM HCL 625 MG PO SCH (21:03)
[2020-08-23] MEDS: INSULIN GLARGINE 300 UNIT/3 ML PEN SUBQ SCH (21:04)
--- NOTE | 2020-08-23 23:16 | PROVIDER PROGRESS NOTE ---
[employer] Developer Note - [employer] Process [employer] Developer Note [employer] Developer Note: 08/23/20 23:15 RN reported change on tele with his QRS and T wave. No symptoms. EKG done and no unusual abnormalities. NSR. Low voltage. No STTW changes.
[2020-08-24 05:32] LABS: BASOPHILS # (AUTO) 0.1 10^3/uL (0.0-0.1); BASOPHILS % (AUTO) 0.5 %; EOSINOPHILS # (AUTO) 0.4 10^3/uL (0.0-0.7); EOSINOPHILS % (AUTO) 4.2 %; HGB - HEMOGLOBIN 12.1 g/dL (14.0-18.0); LYMPHOCYTES # (AUTO) 1.6 10^3/uL (1.5-3.5); LYMPHOCYTES % (AUTO) 17.3 %; MEAN CORPUSCULAR HEMOGLOBIN 29.3 pg (27.0-31.0); MEAN CORPUSCULAR HGB CONC 32.7 g/dL (32.0-36.0); MEAN CORPUSCULAR VOLUME 89.6 fL (80.0-94.0); MEAN PLATELET VOLUME 9.3 fL (7.4-11.4); MONOCYTES # (AUTO) 0.5 10^3/uL (0.0-1.0); MONOCYTES % (AUTO) 5.8 %; NEUTROPHILS # (AUTO) 6.6 10^3/uL (1.5-6.6); NEUTROPHILS % (AUTO) 69.9 %; PLT - PLATELET COUNT 238 10^3/uL (130-450); RED BLOOD COUNT 4.13 10^6/uL (4.70-6.10); RED CELL DISTRIBUTION WIDTH 13.5 % (12.0-15.0); WHITE BLOOD COUNT 9.4 x10^3/uL (4.8-10.8)
[2020-08-24 05:55] LABS: CALCIUM 8.7 mg/dL (8.5-10.3); CREATININE 0.9 mg/dL (0.6-1.2); CRP - C-REACTIVE PROTEIN 13.9 mg/dL (0-1.0); POTASSIUM 3.9 mmol/L (3.5-5.0)
[2020-08-24] MEDS: ACETAMINOPHEN 325 MG TABLET PO PRN ×2 (06:25→12:13)
[2020-08-24] MEDS: GABAPENTIN 100 MG CAPSULE PO SCH ×2 (06:25→12:13)
[2020-08-24] MEDS: SODIUM CHLORIDE FLUSH 0.9% 10 ML SYRINGE IVP SCH ×2 (06:27→07:57)
[2020-08-24] MEDS: INSULIN ASPART 300 UNIT/3 ML PEN SUBQ SCH ×2 (07:56→11:51)
[2020-08-24] MEDS: THIAMINE 100 MG TABLET PO SCH (07:56)
[2020-08-24] MEDS: SACCHAROMYCES BOULARDII 250 MG CAPSULE PO SCH (07:56)
[2020-08-24] MEDS: ENOXAPARIN 40 MG/0.4 ML SYRINGE SUBQ SCH (07:57)
[2020-08-24] MEDS: amLODIPine 5 MG TABLET PO SCH (07:57)
[2020-08-24] MEDS: FINASTERIDE 5 MG TABLET PO SCH (07:57)
[2020-08-24] MEDS: cefTRIAXone 2 GM in SODIUM CHLORIDE 0.9% MINIBAG 100 ML IV SCH (07:58)
--- NOTE | 2020-08-24 08:13 | Discharge Plan ---
Discharge Plan Problem Reviewed?: Yes Disposition: 01 Home, Self Care Prescriptions: Doxycycline Hyclate 100 mg PO BID 7 Days #14 tab Diet: Diabetic Activity Restrictions: Activity as Tolerated Health Concerns: You were admitted with redness and swelling of your right lower extremity. At the time he also had a white blood cell count of 20.5. You were diagnosed with right lower extremity cellulitis. You were started on vancomycin and cefepime after blood cultures were drawn. Your blood cultures did not grow anything during your hospital stay. The redness of your lower extremity continue to improve over your hospital stay. By the day of discharge your white blood cell count had decreased to 9.4 and the redness was mainly localized around your right ankle. He did not have any fevers during the stay. You will be discharged home today with doxycycline 100 mg p.o. twice daily for 7 days. Creatinine when you came to the hospital was 1.6. By discharge your creatinine is 0.9. Your hemoglobin A1c was 10.3 which indicates an average glucose of 249. You are supposed to be on Lantus 20 units subcu daily and sliding scale insulin along with Metformin. You are expected to resume these medications upon discharge. You may follow-up with your primary care doctor within 7 to 10 days or as needed. This plan was discussed with you and you are in agreement. Plan of Treatment: You were admitted with redness and swelling of your right lower extremity. At the time he also had a white blood cell count of 20.5. You were diagnosed with right lower extremity cellulitis. You were started on vancomycin and cefepime after blood cultures were drawn. Your blood cultures did not grow anything during your hospital stay. The redness of your lower extremity continue to improve over your hospital stay. By the day of discharge your white blood cell count had decreased to 9.4 and the redness was mainly localized around your right ankle. He did not have any fevers during the stay. You will be discharged home today with doxycycline 100 mg p.o. twice daily for 7 days. Creatinine when you came to the hospital was 1.6. By discharge your creatinine is 0.9. Your hemoglobin A1c was 10.3 which indicates an average glucose of 249. You are supposed to be on Lantus 20 units subcu daily and sliding scale insulin along with Metformin. You are expected to resume these medications upon discharge. You may follow-up with your primary care doctor within 7 to 10 days or as needed. This plan was discussed with you and you are in agreement. Care Goals: You were admitted with redness and swelling of your right lower extremity. At the time he also had a white blood cell count of 20.5. You were diagnosed with right lower extremity cellulitis. You were started on vancomycin and cefepime after blood cultures were drawn. Your blood cultures did not grow anything during your hospital stay. The redness of your lower extremity continue to improve over your hospital stay. By the day of discharge your white blood cell count had decreased to 9.4 and the redness was mainly localized around your right ankle. He did not have any fevers during the stay. You will be discharged home today with doxycycline 100 mg p.o. twice daily for 7 days. Creatinine when you came to the hospital was 1.6. By discharge your creatinine is 0.9. Your hemoglobin A1c was 10.3 which indicates an average glucose of 249. You are supposed to be on Lantus 20 units subcu daily and sliding scale insulin along with Metformin. You are expected to resume these medications upon discharge. You may follow-up with your primary care doctor within 7 to 10 days or as needed. This plan was discussed with you and you are in agreement. Assessment: You were admitted with redness and swelling of your right lower extremity. At the time he also had a white blood cell count of 20.5. You were diagnosed with right lower extremity cellulitis. You were started on vancomycin and cefepime after blood cultures were drawn. Your blood cultures did not grow anything during your hospital stay. The redness of your lower extremity continue to improve over your hospital stay. By the day of discharge your white blood cell count had decreased to 9.4 and the redness was mainly localized around your right ankle. He did not have any fevers during the stay. You will be discharged home today with doxycycline 100 mg p.o. twice daily for 7 days. Creatinine when you came to the hospital was 1.6. By discharge your creatinine is 0.9. Your hemoglobin A1c was 10.3 which indicates an average glucose of 249. You are supposed to be on Lantus 20 units subcu daily and sliding scale insulin along with Metformin. You are expected to resume these medications upon discharge. You may follow-up with your primary care doctor within 7 to 10 days or as needed. This plan was discussed with you and you are in agreement. No Smoking: If you smoke, Please STOP! Call for help. Follow-up with: My Chen MD [Primary Care Provider] -
--- NOTE | 2020-08-24 08:13 | DISCHARGE SUMMARY ---
Discharge Summary Admit Date: 08/21/20 Discharge Date: 08/24/20 Discharging Provider: Elmo Walsh Primary Care Provider: My Chen Code Status: Attempt Resuscitation Condition at Discharge: Good Discharge Disposition: 01 Home, Self Care - DIAGNOSES Admission Diagnoses: Cellulitis of the right lower extremity Uncontrolled diabetes mellitus Hypertension BPH Morbid obesity Discharge Diagnoses with Status of Each Condition: Cellulitis of the right lower extremity: Acute. Improved. Discharged with a prescription of doxycycline 100 mg p.o. twice daily x7 days. Uncontrolled diabetes mellitus: Chronic. Hemoglobin A1c 10.3. Patient supposed to be on Lantus, sliding scale insulin and Metformin. Hypertension: Chronic BPH: Chronic Morbid obesity: Chronic - HPI History of Present Illness: Per HPI: The patient is a 80-year-old male with medical history significant for diabetes, hypertension, hyperlipidemia, COPD who presented to the ED with complaint of right lower extremity swelling and erythema which started 2 days prior to presentation. He reported a subjective fever at home. In the ED the redness of his lower extremity was appreciable. He also had a WBC of 20. He was afebrile. He was found to have a blood glucose of 323. He reports running out of his insulin about 5 days prior. However it appears he had a mixup with which pharmacy had filled his insulin the thus was unable to pick it up. He also had a creatinine level of 1.6. He was admitted, started on vancomycin and Rocephin after blood cultures were obtained. By the time of discharge blood cultures with no growth to date. His white blood cell count decreased steadily to 9.4. The redness in his lower e xtremity also steadily improved during this time. By discharge the redness was mainly localized around his right ankle. He was discharged home with a prescription of doxycycline 100 mg p.o. twice jahaira ly x7 days. Venous Doppler of the lower extremity was negative for any DVTs. His renal function improved steadily during his hospital stay His creatinine had improved from 1.6 down to 0.9 by discharge. His hemoglobin A1c was 10.3. He was discharged with instructions to follow-up with his primary care physician within 7 to 10 days or as needed. - ALLERGIES Allergies/Adverse Reactions: Allergies Allergy/AdvReac Type Severity Reaction Status Date / Time No Known Drug Allergies Allergy Verified 08/21/20 14:21 - MEDICATIONS Home Medications: Ambulatory Orders Medication Instructions Recorded Confirmed Insulin Regular Human [NovoLIN R] 8 - 10 unit SUBQ 1000,1900 10/02/12 08/22/20 Multivitamin [Multivitamins] 1 each PO DAILY 10/02/12 08/22/20 Simvastatin 20 mg PO QPM 10/02/12 08/22/20 allopurinoL [Allopurinol] 300 mg PO DAILY 10/02/12 08/22/20 lisinopriL [Lisinopril] 5 mg PO DAILY 10/02/12 08/22/20 Thiamine [Vitamin B-1] 150 mg PO DAILY 08/21/20 08/21/20 Ascorbic Acid [Vitamin C] 500 mg PO DAILY 08/22/20 08/22/20 Doxycycline Hyclate 100 mg PO BID 7 Days #14 tab 08/24/20 - PHYSICAL EXAM AT DISCHARGE General Appearance: positive: No acute distress, Alert Eyes Bilateral: positive: PERRL, EOMI ENT: positive: No signs of dehydration Neck: positive: No JVD, Trachea midline Respiratory: positive: Chest non-tender, No respiratory distress, Breath sounds nml. negative: Wheezes, Rales, Rhonchi Cardiovascular: positive: Regular rate & rhythm, No murmur Abdomen: positive: Non-tender, No organomegaly, Nml bowel sounds, No distention. negative: Guarding, Rebound Back: positive: Nml inspection Skin: positive: Warm, Dry Extremities: positive: Pedal edema (2+), Other (Erythema around right ankle) Neurologic/Psychiatric: positive: Oriented x3, Mood/affect nml - LABS Result Diagrams: 08/24/20 05:23 08/24/20 05:23 - SEPSIS Possible source of Sepsis: Skin/soft tissue - TIME SPENT Time Spent in Discharge (Minutes): 25
[2020-08-24] MEDS: polyethylene glycoL 3350 17 GM PACKET PO SCH (08:28)
[2020-08-24 13:21] VITALS: BP 129/52
== END 2020-08-24 14:30 | disposition home or self-care (01) | DRG 603 ==
LOC: EDUNIT# → ED 14:10 → MS2 15:55
PROVIDERS: ADMIT Nurse Practitioner Gerontology; ATTEND Internal Medicine
DX: L03.115 Cellulitis of right lower limb (principal); Z68.41 Body mass index [BMI] 40.0-44.9, adult; E11.69 Type 2 diabetes mellitus with other specified complication; E11.65 Type 2 diabetes mellitus with hyperglycemia; E78.00 Pure hypercholesterolemia, unspecified; I10 Essential (primary) hypertension; E78.5 Hyperlipidemia, unspecified; Z20.822 Contact with and (suspected) exposure to COVID-19; J44.9 Chronic obstructive pulmonary disease, unspecified; E66.01 Morbid (severe) obesity due to excess calories; N40.0 Benign prostatic hyperplasia without lower urinary tract symptoms; T38.3X6A Underdosing of insulin and oral hypoglycemic [antidiabetic] drugs, initial encounter; Z91.138 Patient's unintentional underdosing of medication regimen for other reason; N28.9 Disorder of kidney and ureter, unspecified; Z79.4 Long term (current) use of insulin; Z79.899 Other long term (current) drug therapy
CPT/HCPCS: 36415; 71045; 80048; 80053; 81001; 82009; 83036; 83605; 85025; 86140; 87040; 87631; 93005; 93971; 94640; 94660; 97116; 97161; 99284; 99285; A9270; G0480; J1650; J1815; J3370; 0202U; 80202; 80320; 87086

== ENCOUNTER 2021-05-29 11:56 | Outpatient (CLI) | payer MEDICARE, OTHER | END 2021-05-29 11:57 | disposition E | LOC: EMS 11:56 | DX: I46.9 Cardiac arrest, cause unspecified (principal) | CPT/HCPCS: A0425; A0429 ==